=== PATIENT | female | born 1990 | race Caucasian/White ===

== ENCOUNTER → 2018-07-29 | Outpatient (CLI) | payer OTHER ==
[~2018-07-29] MED LIST: FENTANYL CITRATE INJ/PF 100 MCG/2 ML AMPUL ONE
--- NOTE | 2018-07-29 14:38 | RADIOLOGY REPORT (SQ) ---
EXAM DESCRIPTION: HYSTEROSALPINGOGRAM; HYSTERO CATH/INJECTION COMPLETED DATE/TIME: 07/29/2018 2:24 pm REASON FOR STUDY: (Z31.9) ENCOUNTER FOR PROCREATIVE MANAGEMENT, UNSPECIFIED Z31.9 ENCOUNTER FOR PRO CREATIVE MANAGEMENT, UNSPECIFIED COMPARISON: None. PROCEDURE: PRE-PROCEDURE: Procedure was explained to the patient. She was told to expect cramping du ring the procedure, and possible spotting post procedure. PROCEDURE: The cervix was prepped in sterile fashion. Under direct visual inspection, the cervix was cannulated with the hysterosalpingogram catheter and contrast injected. TECHNIQUE: Temporal fluoroscopic images acquired during the procedure stored to PACS. FLUOROSCOPY TIME: 13 seconds 4 images saved to PACS. LIMITATIONS: None. FINDINGS: UTERUS: No identified anomalies. No synechia. RIGHT ADNEXA: Normal size fallopian tube. Free spill of contrast into the peritoneal cavity. LEFT ADNEXA: Normal size fallopian tube. Free spill of contrast into the peritoneal cavity. POST PROCEDURE: The patient tolerated the procedure with no adverse effects. IMPRESSION: NORMAL HYSTEROSALPINGOGRAM. COMMENT: At my direction, under continuous physiologic monitoring of the patient by radiology nurse before, during an after the procedure, a total of 100 micrograms of IV fentanyl was given. No immedi ate complications. Study performed by and interpreted by the radiologist. Quality ID [id number]: Final reports for procedures using fluoroscopy that document radiation exposure selina brien, or exposure time and number of fluorographic images (if radiation exposure indices are not avail able) TECHNICAL DOCUMENTATION: JOB ID: [id number] [employer]- All Rights Reserved Reading location - IP/workstation name: [email or web address]
== END ==
LOC: RAD 12:31
PROVIDERS: ATTEND Obstetrics & Gynecology
DX: Z31.9 Encounter for procreative management, unspecified (principal)
CPT/HCPCS: 74740; 58340; J3010

== ENCOUNTER 2018-11-10 05:47 | Emergency (ER) | payer OTHER ==
[2018-11-10 07:49] LABS: ABSOLUTE BASOPHILS # (AUTO) 0.1 10^3/uL (0.0-0.2); ABSOLUTE EOSINOPHILS # (AUTO) 0.1 10^3/uL (0.0-0.6); ABSOLUTE LYMPHOCYTES (AUTO) 1.7 10^3/uL (0.5-4.7); ABSOLUTE MONOCYTES (AUTO) 0.3 10^3/uL (0.1-1.4); ABSOLUTE NEUT (AUTO) 4.2 10^3/uL (1.7-8.2); HEMATOCRIT 41.6 % (36.0-47.0); HEMOGLOBIN 14.2 g/dL (12.0-15.5); LYMPHOCYTES % (AUTO) 26.4 % (13-45); MEAN CORPUSCULAR HEMOGLOBIN 30.1 pg (27.0-33.4); MEAN CORPUSCULAR HGB CONC 34.1 g/dL (32.0-36.0); MEAN CORPUSCULAR VOLUME 88 fl (80-97); MONOCYTES % (AUTO) 5.2 % (3-13); PLATELET COUNT 223 10^3/uL (150-450); RED BLOOD COUNT 4.71 10^6/uL (3.72-5.28); RED CELL DISTRIBUTION WIDTH 12.7 % (11.5-14.0); SEGMENTED NEUTROPHILS % (AUTO) 66.4 % (42-78); TOTAL CELLS COUNTED % (AUTO) 100 %; WHITE BLOOD COUNT 6.3 10^3/uL (4.0-10.5)
[2018-11-10 08:04] LABS: ALBUMIN 4.3 g/dL (3.5-5.0); ALKALINE PHOSPHATASE 77 U/L (38-126); ANION GAP 8 (5-19); ASPARTATE AMINO TRANSFERASE 25 U/L (14-36); BILIRUBIN,TOTAL 0.5 mg/dL (0.2-1.3); BLOOD UREA NITROGEN 13 mg/dL (7-20); CALCIUM 9.8 mg/dL (8.4-10.2); CARBON DIOXIDE 26 mmol/L (22-30); CHLORIDE 105 mmol/L (98-107); GLUCOSE 101 mg/dL (75-110); POTASSIUM 4.2 mmol/L (3.6-5.0); TOTAL PROTEIN 7.3 g/dL (6.3-8.2)
[2018-11-10] MEDS ORDERED: KETOROLAC TROMETHAMINE INJ/PF 30 MG/1 ML SDV IV ONE (08:21)
[2018-11-10] MEDS ORDERED: NORMAL SALINE 1000 ML 1,000 ML IV ONE (08:21)
--- NOTE | 2018-11-10 08:22 | RADIOLOGY REPORT (SQ) ---
EXAM DESCRIPTION: CHEST SINGLE VIEW COMPLETED DATE/TIME: 11/10/2018 8:05 am REASON FOR STUDY: chest pain COMPARISON: None. EXAM PARAMETERS: NUMBER OF VIEWS: One view. TECHNIQUE: Single frontal radiographic view of the chest acquired. RADIATION DOSE: NA LIMITATIONS: None. FINDINGS: LUNGS AND PLEURA: No opacities, masses or pneumothorax. No pleural effusion. MEDIASTINUM AND HILAR STRUCTURES: No masses. Contour normal. HEART AND VASCULAR STRUCTURES: Heart normal in size. Normal vasculature. BONES: No acute findings. HARDWARE: None in the chest. OTHER: No other significant finding. IMPRESSION: NO ACUTE RADIOGRAPHIC FINDING IN THE CHEST. TECHNICAL DOCUMENTATION: JOB ID: [id number] [email or web address]- All Rights Reserved Reading location - IP/workstation name: [email or web address]
--- NOTE | 2018-11-10 09:08 | ER Document Report ---
Entered by SHANNON MOSER SCRIBE 11/10/18 0828 Acting as scribe for:ESTEFANI AUGUST MD ED General - General Chief Complaint: Chest Pain Stated Complaint: CHEST AND SIDE PAIN Time Seen by Provider: 11/10/18 08:13 Primary Care Provider: SHIRA GUSTAFSON MD [Primary Care Provider] - Follow up as needed Notes: 28-year-old female who presents to the emergency department today with complaints of a one-week history of right upper quadrant pain with associated diarrhea along with chest pain which began last night. Patient states her chest pain began last night when she was lying down to go to sleep. Patient states she just finished a prescription of clomiphene citrate for fertility. TRAVEL OUTSIDE OF THE [place] IN LAST 30 DAYS: No - Related Data Allergies/Adverse Reactions: No Known Allergies Allergy (Unverified 11/10/18 05:49) Past Medical History - General Information source: Patient - Social History Smoking Status: Unknown if Ever Smoked Cigarette use (# per day): No Frequency of alcohol use: None Drug Abuse: None Lives with: Family Family History: Reviewed & Not Pertinent Patient has suicidal ideation: No Patient has homicidal ideation: No Review of Systems - Review of Systems Constitutional: No symptoms reported EENT: No symptoms reported Cardiovascular: See HPI, Chest pain Respiratory: No symptoms reported Gastrointestinal: See HPI, Diarrhea, Nausea Genitourinary: No symptoms reported Female Genitourinary: No symptoms reported Musculoskeletal: No symptoms reported Skin: No symptoms reported Hematologic/Lymphatic: No symptoms reported Neurological/Psychological: No symptoms reported -: Yes All other systems reviewed and negative Physical Exam - Vital signs Vitals: Temp Pulse Resp BP Pulse Ox 97.9 F 79 16 151/85 H 98 11/10/18 05:49 11/10/18 05:49 11/10/18 05:49 11/10/18 05:49 11/10/18 05:49 - Notes Notes: Physical Exam: General: Alert, appears well. Obese. HEENT: Normocephalic. Atraumatic. PERRL. Extraocular movements intact. Oroph arynx clear. Neck: Supple. Non-tender. Respiratory: No respiratory distress. Clear and equal breath sounds bilaterally. Chest wall tenderness with palpation. Sternum and right lateral rib tenderness with palpation. Cardiovascular: Regular rate and rhythm. Abdominal: RUQ tenderness with palpation. No distension. Normal Bowel Sounds. Back: No gross abnormalities. Extremities: Moves all four extremities. Upper extremities: Normal inspection. Normal ROM. Lower extremities: Normal inspection. No edema. Normal ROM. Neurological: Normal cognition. AAOx4. Normal speech. Psychological: Normal affect. Normal Mood. Skin: Warm. Dry. Normal color. Course - Vital Signs Vital signs: Temp Pulse Resp BP Pulse Ox 97.9 F 79 18 128/70 H 98 11/10/18 05:49 11/10/18 05:49 11/10/18 07:34 11/10/18 07:34 11/10/18 07:34 - Laboratory Result Diagrams: 11/10/18 07:30 11/10/18 07:30 - Diagnostic Test Radiology reviewed: Image reviewed, Reports reviewed - Chest x-ray is unremarkable. Gallbladder ultrasound shows fatty infiltration of liver with no gallbladder abnormality. - EKG Interpretation by Tn EKG shows normal: Sinus rhythm, [place], Intervals, QRS Complexes, ST-T Waves Rate: Normal - 71 Rhythm: NSR Discharge - Discharge Clinical Impression: Chest wall pain Abdominal pain Qualifiers: Abdominal location: right upper quadrant Qualified Code(s): R10.11 - Right upper quadrant pain Diarrhea Qualifiers: Diarrhea type: unspecified type Qualified Code(s): R19.7 - Diarrhea, unspecified Condition: Stable Disposition: HOME, SELF-CARE Additional Instructions: Chest Wall Pain: Your chest pain has been diagnosed as coming from the chest wall. This is often caused by straining the muscles or joints in the chest during physical activity, direct trauma, coughing, or vigorous vomiting. Persons with arthritis are especially prone to this type of pain, due to inflammation of the cartilage joints near the breast bone. Occasionally, no cause can be found. Rest from strenuous physical activity. This kind of chest pain is usually made worse by movement of the chest. Depending on the symptoms, we may prescribe medicine for pain, muscle relaxation, and antiinflammatory effects. If the pain is new, and seems to be due to muscle strain, cold packs can help. Otherwise, apply gentle warmth to the painful area for 15 minutes every hour or two. You should contact the doctor immediately if things change. Further eval uation is needed if you develop a fever or cough, if the nature of the pain changes, or if you become short of breath. Diarrhea: Diarrhea means frequent, watery stools. There are many causes. Any problem that keeps the intestinal tract from absorbing water from the stool can lead to diarrhea. A sudden new diarrhea problem is usually caused by a virus, food sensitivity, toxic bacteria, or drugs. In this case, we expect the problem to go away soon. Testing is done only if you seem seriously ill from the diarrhea. If you have chronic diarrhea, or diarrhea that keeps coming back, we need to find out why. Chronic diarrhea can be due to inflammation of the bowels such as Crohn's disease or ulcerative colitis, food sensitivity such as intolerance to lactose or wheat protein, irritable bowel syndrome, and other problems. If your diarrhea is a significant problem but it's not clear why you have it, we'll refer you to a specialist for further testing. During an episode of diarrhea, drink small amounts (two to six ounces) of clear liquids (soft drinks, sport drinks, herb teas, broth, etc). Take fluids frequently to prevent dehydration. It's usually not a problem to take mild anti- diarrhea medication such as Kaopectate or Pepto-Bismol. As the diarrhea eases, advance to small amounts of bland food (mashed potato, toast) for 24 hours. Call the physician if blood appears in your vomit or stool, if vomiting lasts longer than 24 hours, if the abdominal pain worsens or becomes localized to one area, if you develop high fever, or if you become lightheaded and weak. Abdominal Pain: There are many causes of abdominal pain. Pain can mean a serious problem requiring surgery (such as appendicitis). It can also be an innocent problem that goes away on its own (such as a viral infection). Often, time must pass to determine the cause of pain. The physician does not feel that hospitalization is necessary, at present. Things may change within the next 24 hours. Call the doctor or come back for re- examination if any problems occur, such as: (1) Pain that becomes more severe, steady, or becomes concentrated in one specific area. Also, pain that is more severe with movement or coughing. (2) Vomiting that persists or becomes more frequent. (3) Blood in the vomitus, urine, or bowel movements. Blood in the stool may have a tarry or black appearance. (4) Shaking chills or fever greater than 100 degrees F. (5) The abdomen becomes more distended or swollen. (6) Bowel movements cease. (7) Failure to improve as expected. Take Imodium-AD or Pepto-Bismol for the diarrhea as needed. Drink plenty of cool clear liquids. Take ibuprofen or Aleve for your chest wall pain. Follow-up with your primary care provider if not improving. RETURN TO THE EMERGENCY ROOM IF ANY NEW OR WORSENING SYMPTOMS. Referrals: SHIRA GUSTAFSON MD [Primary Care Provider] - Follow up as needed Scribe Attestation: 11/10/18 09:41 I personally performed the services described in the documentation, reviewed and edited the documentation which was dictated to the scribe in my presence, and it accurately records my words and actions. I personally performed the services described in the documentation, reviewed and edited the documentation which was dictated to the scribe in my presence, and it accurately records my words and actions.
--- NOTE | 2018-11-10 09:33 | EKG REPORT ---
SEVERITY:- NORMAL ECG - SINUS RHYTHM : Confirmed by: Alice Fry MD 10-Nov-2018 09:32:32
[2018-11-10 09:43] LABS: APPEARANCE,URINE SLIGHTLY-CLOUDY; BILIRUBIN,URINE NEGATIVE (NEGATIVE); COLOR,URINE YELLOW; GLUCOSE, URINE NEGATIVE (NEGATIVE); KETONES,URINE NEGATIVE (NEGATIVE); LEUKOCYTE ESTERASE,URINE NEGATIVE (NEGATIVE); NITRITE,URINE NEGATIVE (NEGATIVE); PROTEIN,URINE NEGATIVE (NEGATIVE); URINE SPECIFIC GRAVITY 1.025; UROBILINOGEN,URINE NEGATIVE mg/dL (<2.0)
--- NOTE | 2018-11-10 09:59 | RADIOLOGY REPORT (SQ) ---
EXAM DESCRIPTION: U/S ABDOMEN LIMITED W/O DOP COMPLETED DATE/TIME: 11/10/2018 9:51 am REASON FOR STUDY: RUQ abd pain COMPARISON: None. TECHNIQUE: Dynamic and static grayscale images acquired of the abdomen and recorded on PACS. Additio nal selected color Doppler and spectral images recorded. Note: Exam does not meet criteria for a complete doppler/duplex scan LIMITATIONS: Study limited due to acoustical interference from fat or from air in the bowel. FINDINGS: PANCREAS: The pancreatic tail is poorly seen secondary to acoustical interference from air in the bowel. No visualized masses. Duct normal caliber as seen. LIVER: Echotexture is coarse with increased echogenicity consistent with fatty infiltration. LIVER VASCULATURE: Normal directional flow of the main portal vein and hepatic veins. GALLBLADDER: No stones. Normal wall thickness. No pericholecystic fluid. ULTRASOUND-DETECTED DELVALLE'S SIGN: Negative. INTRAHEPATIC DUCTS AND COMMON DUCT: CBD and intrahepatic ducts normal caliber. No filling defects. INFERIOR VENA CAVA: Normal flow. AORTA: No aneurysm. RIGHT KIDNEY: Normal size. Normal echogenicity. No solid or suspicious masses. No hydronephrosis. No calcifications. PERITONEAL AND PLEURAL SPACES: No ascites or effusions. OTHER: No other significant finding. IMPRESSION: FATTY INFILTRATION OF THE LIVER. NO OTHER SIGNIFICANT FINDING IN THE VISUALIZED ABDOMEN. TECHNICAL DOCUMENTATION: JOB ID: [id number] [employer]- All Rights Reserved Reading location - IP/workstation name: [email or web address]
[2018-11-10 10:04] LABS: ADD MANUAL MICROSCOPIC YES
[2018-11-10 10:17] LABS: BACTERIA,URINE 1+ /HPF; HYALINE CASTS, URINE 0-1 /LPF
[2018-11-10 12:09] VITALS: BP 120/64
== END 2018-11-10 12:09 | disposition home or self-care (01) ==
LOC: ER 05:47
DX: R07.89 Other chest pain (principal); R19.7 Diarrhea, unspecified; R10.11 Right upper quadrant pain
CPT/HCPCS: 93005; 36415; 84703; 85025; 80053; 81001; 84484; 71045; 76705; 93010; J1885; J7030

== ENCOUNTER 2018-12-02 02:11 | Emergency (ER) | payer OTHER ==
[2018-12-02] MEDS ORDERED: PANTOPRAZOLE SODIUM 40 MG VIAL IV ONE (03:59)
[2018-12-02 04:07] LABS: ABSOLUTE EOSINOPHILS # (AUTO) 0.1 10^3/uL (0.0-0.6); ABSOLUTE LYMPHOCYTES (AUTO) 1.8 10^3/uL (0.5-4.7); ABSOLUTE MONOCYTES (AUTO) 0.4 10^3/uL (0.1-1.4); ABSOLUTE NEUT (AUTO) 2.7 10^3/uL (1.7-8.2); BASOPHILS % (AUTO) 0.8 % (0-2); EOSINOPHILS % (AUTO) 1.6 % (0-6); HEMATOCRIT 41.9 % (36.0-47.0); HEMOGLOBIN 14.3 g/dL (12.0-15.5); MEAN CORPUSCULAR HEMOGLOBIN 30.4 pg (27.0-33.4); MEAN CORPUSCULAR HGB CONC 34.2 g/dL (32.0-36.0); MEAN CORPUSCULAR VOLUME 89 fl (80-97); MONOCYTES % (AUTO) 8.2 % (3-13); PLATELET COUNT 177 10^3/uL (150-450); RED BLOOD COUNT 4.72 10^6/uL (3.72-5.28); RED CELL DISTRIBUTION WIDTH 12.9 % (11.5-14.0); SEGMENTED NEUTROPHILS % (AUTO) 53.4 % (42-78); TOTAL CELLS COUNTED % (AUTO) 100 %
[2018-12-02 04:27] LABS: ALBUMIN 3.8 g/dL (3.5-5.0); ALKALINE PHOSPHATASE 64 U/L (38-126); ANION GAP 9 (5-19); ASPARTATE AMINO TRANSFERASE 24 U/L (14-36); BILIRUBIN,DIRECT 0.1 mg/dL (0.0-0.4); BILIRUBIN,TOTAL 0.4 mg/dL (0.2-1.3); BLOOD UREA NITROGEN 10 mg/dL (7-20); CALCIUM 9.5 mg/dL (8.4-10.2); CARBON DIOXIDE 24 mmol/L (22-30); CHLORIDE 107 mmol/L (98-107); GLUCOSE 94 mg/dL (75-110); TOTAL PROTEIN 6.6 g/dL (6.3-8.2)
--- NOTE | 2018-12-02 04:36 | ER Document Report ---
ED General - General Chief Complaint: Chest Pain Stated Complaint: CHEST PAIN Time Seen by Provider: 12/02/18 03:36 Primary Care Provider: ASTRID SOSA MD [ACTIVE STAFF] - Follow up in 3-5 days SAMMIE CHOUDHURY FNP-C [Primary Care Provider] - Follow up as needed TRAVEL OUTSIDE OF THE [place] IN LAST 30 DAYS: No - HPI Notes: This is a 28-year-old female who presents with a complaint of midsternal chest pain that radiates up her midsternum and to both hands. She describes intermi ttent episodes of pain for the past 3 weeks. Patient states that this is been more waxing and waning as she really has not had a pain-free period within the past 3 weeks. Associated symptoms include tingling of both hands. Symptoms got worse tonight while was laying supine. Pain is sometimes worse with food. She denies any new stressors in her life. She denies any dyspnea. She denies any abdominal pain. She describes her symptoms as mild to moderate. - Related Data Allergies/Adverse Reactions: No Known Allergies Allergy (Unverified 11/10/18 05:49) Past Medical History - Social History Smoking Status: Former Smoker Frequency of alcohol use: None Drug Abuse: None Family History: Reviewed & Not Pertinent Patient has suicidal ideation: No Patient has homicidal ideation: No Review of Systems - Review of Systems Cardiovascular: Chest pain. denies: Palpitations, Heart racing Respiratory: denies: Cough, Short of breath, Sputum, Wheezing Gastrointestinal: Nausea. denies: Abdominal pain, Diarrhea, Vomiting Genitourinary: denies: Burning, Dysuria -: Yes All other systems reviewed and negative Physical Exam - Vital signs Vitals: Temp Pulse Resp BP Pulse Ox 98.1 F 78 22 H 126/74 H 100 12/02/18 02:35 12/02/18 02:35 12/02/18 02:35 12/02/18 02:35 12/02/18 02:35 - General General appearance: Appears well, Alert - Respiratory Respiratory status: No respiratory distress Chest status: Tender - There is reproducible upper chest wall tenderness. Breath sounds: Normal Chest palpation: Normal - Cardiovascular Rhythm: Regular Heart sounds: Normal auscultation Murmur: No - Abdominal Inspection: Normal Distension: No distension Bowel sounds: Normal Tenderness: Nontender Organomegaly: No organomegaly - Extremities General upper extremity: Normal inspection, Nontender, Normal color, Normal ROM, Normal temperature General lower extremity: Normal inspection, Nontender, Normal color, Normal ROM, Normal temperature, Normal weight bearing. No: Erik's sign - Neurological Neuro grossly intact: Yes Cognition: Normal Orientation: AAOx4 [place] Coma Scale Eye Opening: Spontaneous Raghu Coma Scale Verbal: Oriented [place] Coma Scale Motor: Obeys Commands Raghu Coma Scale Total: 15 Speech: Normal Motor strength normal: LUE, RUE, LLE, RLE Sensory: Normal - Psychological Associated symptoms: Normal affect, Normal mood, Anxious - Skin Skin Temperature: Warm Skin Moisture: Dry Skin Color: Normal Course - Re-evaluation Re-evalutation: 12/02/18 04:35 Differential diagnosis includes GERD versus gastritis versus anxiety versus atypical chest pain versus chest wall pain.. There is no clinical suspicion for acute coronary syndrome with atypical chest pain for the past 3 weeks. There is no clinical signs for pulmonary embolus. EKG shows normal sinus rhythm at 71 bpm. Normal axis. Normal intervals. Normal EKG. 12/02/18 05:03 Patient reevaluated. She still has some discomfort. Pain is reproducible with palpation. We will give her Toradol. 12/02/18 05:36 Patient reevaluated. She feels better after Toradol. Patient notes that she has been here multiple times with chest pain syndromes. I will refer her to cardiology for further evaluation. She is stable for discharge. We will put her on NSAIDs for her pain. - Vital Signs Vital signs: Temp Pulse Resp BP Pulse Ox 98.1 F 78 27 H 134/85 H 100 12/02/18 02:35 12/02/18 02:35 12/02/18 05:01 12/02/18 05:01 12/02/18 05:01 - Laboratory Result Diagrams: 12/02/18 03:50 12/02/18 03:50 - Diagnostic Test Radiology reviewed: Image reviewed Discharge - Discharge Clinical Impression: Atypical chest pain Condition: Stable Disposition: HOME, SELF-CARE Instructions: Chest Pain of Unclear Cause ([facility]), Chest Wall Pain ([facility]) Prescriptions: Naproxen 500 mg PO BID PRN #14 tablet PRN Reason: Referrals: SAMMIE CHODUHURY, VICTORIA [Primary Care Provider] - Follow up as needed ASTRID SOSA MD [ACTIVE STAFF] - Follow up in 3-5 days (Call later today to schedule appointment.)
[2018-12-02] MEDS ORDERED: KETOROLAC TROMETHAMINE INJ/PF 30 MG/1 ML SDV IV ONE (05:03)
--- NOTE | 2018-12-02 05:41 | RADIOLOGY REPORT (SQ) ---
EXAM DESCRIPTION: X-ray two view chest. CLINICAL HISTORY: 28 years Female, chest pain COMPARISON: 11/10/2018 TECHNIQUE: PA and Lateral views of the chest performed on 12/02/2018 at 5:02 AM FINDINGS: The lungs are well expanded and are clear. The costophrenic sulci are clear. There is no evidence of a pneumothorax. The cardiac silhouette is normal in size. The mediastinal contours are normal. No acute osseous abnormalities are identified. No focal soft tissue abnormalities are identified. IMPRESSION: No evidence of acute intrathoracic disease.
[2018-12-02 06:20] VITALS: BP 127/79
--- NOTE | 2018-12-02 13:38 | EKG REPORT ---
SEVERITY:- NORMAL ECG - SINUS RHYTHM : Confirmed by: Alice Fry MD 02-Dec-2018 13:37:58
== END 2018-12-02 06:20 | disposition home or self-care (01) ==
LOC: ER 02:11
DX: R07.89 Other chest pain (principal); R20.0 Anesthesia of skin; Z87.891 Personal history of nicotine dependence
CPT/HCPCS: 93005; 36415; 83690; 85025; 80053; 84484; 71046; 93010; J1885; S0164; 96374; 96375; 99285